=== PATIENT | male | born 1975 | race Caucasian/White ===

== ENCOUNTER 2024-05-02 13:16 | Emergency (ER) | payer OTHER ==
[~2024-05-02] VITALS: Ht 175.3 cm; Wt 87.2 kg
[2024-05-02] MEDS ORDERED: ECOT81TA5 PO (13:29)
[2024-05-02] MEDS ORDERED: HYDR12.55 PO (13:29)
[2024-05-02 15:11] LABS: BASO % 0.4 % (0.0-1.0); EOS # 0.1 10^3/uL (0.0-0.5); EOS % 1.2 % (0.0-3.0); HEMATOCRIT 49.8 % (42.0-52.0); HEMOGLOBIN 17.1 g/dl (13.5-17.5); LYMPH # 1.5 10^3/uL (1.5-5.0); LYMPH % 15.9 % (24.0-44.0); MEAN CORPUSCULAR HEMOGLOBIN 31.7 pg (27.0-33.0); MEAN CORPUSCULAR HGB CONC 34.3 g/dl (32.0-36.5); MEAN CORPUSCULAR VOLUME 92.4 fl (80.0-96.0); MONO # 0.6 10^3/uL (0.0-0.8); MONO % 5.9 % (2.0-8.0); NEUTROPHILS # 7.3 10^3/uL (1.5-8.5); NEUTROPHILS % 76.4 % (36.0-66.0); PLATELET COUNT, AUTOMATED 287 10^3/uL (150-450); RED BLOOD COUNT 5.39 10^6/uL (4.30-6.10); WHITE BLOOD COUNT 9.6 10^3/uL (4.0-10.0)
[2024-05-02 15:28] LABS: CK-MB VALUE MASS < 1.0 NG/ML (<3.6)
[2024-05-02 15:30] LABS: BLOOD UREA NITROGEN 17 MG/DL (9-23); CALCIUM LEVEL 9.8 MG/DL (8.5-10.1); CARBON DIOXIDE LEVEL 27 MMOL/L (20-31); CHLORIDE LEVEL 106 MMOL/L (98-107); CPK CREATINE PHOSPHOKINASE 125 U/L (46-171); CREATININE FOR GFR 0.87 MG/DL (0.70-1.30); GLOMERULAR FILTRATION RATE > 60.0 (>60); GLUCOSE, FASTING 83 MG/DL (60-100); POTASSIUM SERUM 4.1 MMOL/L (3.5-5.1); SODIUM LEVEL 138 MMOL/L (136-145)
[2024-05-02 15:53] VITALS: BP 146/88; TEMP 97.9; O2SAT 97
[2024-05-02] MEDS: ACETAMINOPHEN 325 MG TAB PO ONE (16:00)
== END 2024-05-02 16:01 | disposition home or self-care (01) ==
LOC: M ED 13:16
DX: I10 Essential (primary) hypertension (principal); R00.1 Bradycardia, unspecified; Z79.1 Long term (current) use of non-steroidal anti-inflammatories (NSAID); Z79.899 Other long term (current) drug therapy